=== PATIENT | male | born 1975 | race African-American/Black ===

== ENCOUNTER 2021-06-10 21:34 | Inpatient (IN) | payer OTHER ==
[~2021-06-10] VITALS: Ht 193 cm; Wt 103.2 kg
--- NOTE | 2021-06-10 21:35 | NUR ---
PT BIBSELF HOME C/O CP X 1 DAY FELT WORST TODAY, RAD TO LEFT NECK. NO TRAUMA NOTED. PT A/OX4. TOLERATING R/A WELL WITH SOB. CONNECTED PT TO POX AND MONITOR.
--- NOTE | 2021-06-10 22:01 | NUR ---
INITIATED RIGHT AC 20G. BLOOD COLLECTED AND GIVEN TO BOWLING ALLEY ATTENDANT
--- NOTE | 2021-06-10 22:13 | NUR ---
DRAFTING LAYOUT WORKER AT PT'S BEDSIDE
[2021-06-10 22:24] LABS: BASOPHILS % (AUTO) 0.6 % (0.0-2.0); EOSINOPHILS % (AUTO) 2.1 % (0.0-6.0); HEMATOCRIT 37 % (39-51); HEMOGLOBIN 12.3 g/dL (13.5-17.5); LYMPHOCYTES # (AUTO) 1.6 K/uL (0.8-4.8); LYMPHOCYTES % (AUTO) 22.9 % (20.0-44.0); MEAN CORPUSCULAR HGB CONC 33 g/dl (31.0-36.0); MEAN CORPUSCULAR VOLUME 78 fL (80-96); MONOCYTES # (AUTO) 0.7 K/uL (0.1-1.30); MONOCYTES % (AUTO) 10.4 % (2.0-12.0); NEUTROPHILS # (AUTO) 4.5 K/uL (1.8-8.9); PLATELET COUNT (AUTO) 193 K/uL (150-450); RED BLOOD CELL COUNT(AUTO) 4.76 MIL/uL (4.5-6.0)
--- NOTE | 2021-06-10 22:25 | NUR ---
STEVEN CARLTON AT PT'S BEDSIDE
[2021-06-10] MEDS ORDERED: NITROGLYCERIN 0.4 MG/TAB BOTTLE SL ONE (22:30)
[2021-06-10] MEDS ORDERED: ASPIRIN 325 MG TABLET PO ONE (22:30)
[2021-06-10 22:32] LABS: CALCIUM, SERUM 9.4 mg/dL (8.5-10.1); CREATININE 1.2 mg/dL (0.6-1.3); POTASSIUM 3.3 mmol/L (3.5-5.1)
[2021-06-10] MEDS ORDERED: ONDANSETRON HCL/PF 4 MG/2 ML VIAL IVP PRN (23:00)
[2021-06-10] MEDS ORDERED: ACETAMINOPHEN 325 MG TABLET PO PRN (23:00)
[2021-06-10] MEDS ORDERED: LABETALOL 20 MG/4 ML VIAL IV PRN (23:00)
[2021-06-10] MEDS ORDERED: ENOXAPARIN SODIUM 40 MG/0.4 ML DISP.SYRIN SQ SCH (23:00)
[2021-06-10] MEDS ORDERED: MORPHINE SULFATE INJ 2 MG/ML DISP.SYRIN IV PRN (23:00)
[2021-06-10] MEDS ORDERED: ASPIRIN 325 MG TABLET ONE (23:06)
[2021-06-10] MEDS ORDERED: NITROGLYCERIN 0.4 MG/TAB BOTTLE ONE (23:06)
--- NOTE | 2021-06-10 23:20 | NUR ---
CHEST PAIN RELIEVED WITH 325MG ASPIRIN, AND ONE 0.4MG NITROGLYCETIN TABLET. PT EXPRESSES NO CHEST PAIN. WILL CONTINUE TO MONITOR.
[2021-06-10] MEDS: TICAGRELOR 90 MG TABLET PO SCH (23:30)
[2021-06-11] MEDS ORDERED: ENOXAPARIN SODIUM 40 MG/0.4 ML DISP.SYRIN SQ ONE (04:27)
[2021-06-11] MEDS ORDERED: POTASSIUM CHLORIDE 20 MEQ TAB.PRT.SR PO ONE (04:28)
[2021-06-11] MEDS: POTASSIUM CHLORIDE 20 MEQ TAB.PRT.SR PO SCH ×2 (04:38→09:28)
--- NOTE | 2021-06-11 04:39 | NUR ---
PT AMBULATORY WITH STEADY GAIT TO THE RESTROOM. ADLS DONE. PT DENIES PAIN OR DISCOMFORT AT THIS TIME. ALL NEEDS MET. SAFETY MEASURES IN PLACE. RAC #20G S/L; PATENT AND INTACT.
[2021-06-11 04:57] LABS: BASOPHILS % (AUTO) 0.5 % (0.0-2.0); EOSINOPHILS % (AUTO) 2.2 % (0.0-6.0); HEMATOCRIT 38 % (39-51); HEMOGLOBIN 12.5 g/dL (13.5-17.5); LYMPHOCYTES # (AUTO) 1.8 K/uL (0.8-4.8); LYMPHOCYTES % (AUTO) 29.9 % (20.0-44.0); MEAN CORPUSCULAR HGB CONC 33 g/dl (31.0-36.0); MEAN CORPUSCULAR VOLUME 77 fL (80-96); MONOCYTES # (AUTO) 0.7 K/uL (0.1-1.30); MONOCYTES % (AUTO) 11.3 % (2.0-12.0); NEUTROPHILS # (AUTO) 3.5 K/uL (1.8-8.9); NEUTROPHILS % (AUTO) 56.1 % (43.0-81.0); PLATELET COUNT (AUTO) 189 K/uL (150-450); RED BLOOD CELL COUNT(AUTO) 4.85 MIL/uL (4.5-6.0); WHITE BLOOD COUNT (AUTO) 6.2 K/uL (4.3-11.0)
[2021-06-11 05:27] LABS: ALBUMIN 3.5 g/dL (3.4-5.0); BILIRUBIN,TOTAL 0.6 mg/dL (0.2-1.0); CALCIUM, SERUM 9.2 mg/dL (8.5-10.1); CREATININE 1.1 mg/dL (0.6-1.3); MAGNESIUM 2.1 mg/dL (1.8-2.4); PHOSPHORUS 4.1 mg/dL (2.5-4.9); POTASSIUM 3.8 mmol/L (3.5-5.1); TOTAL PROTEIN, SERUM 7.4 g/dL (6.4-8.2)
[2021-06-11] MEDS ORDERED: ENOXAPARIN SODIUM 40 MG/0.4 ML DISP.SYRIN SQ SCH (06:53)
--- NOTE | 2021-06-11 07:23 | NUR ---
ASSESSED PT ON BED ASLEEP, EASILY AROUSABLE, NOT IN RESPIRATORY DISTRESS, V/S STABLE, KEPT RESTED AND COMFORTABLE. WILL CONTINUE TO MONITOR.
[2021-06-11] MEDS ORDERED: PANTOPRAZOLE 40 MG TABLET.DR PO ONE (07:25)
[2021-06-11] MEDS: PANTOPRAZOLE 40 MG TABLET.DR PO SCH (07:27)
[2021-06-11] MEDS ORDERED: AMLO-213 PO (07:38)
[2021-06-11] MEDS ORDERED: TICA90TA PO (07:40)
[2021-06-11] MEDS ORDERED: ASPI-1169 PO (07:40)
[2021-06-11 08:00] VITALS: BP 123/78
--- NOTE | 2021-06-11 08:00 | NUR ---
RAY COREAS FROM ER CALLED AT [phone] AND GAVE REPORT.
--- NOTE | 2021-06-11 08:01 | NUR ---
REPORT GIVEN TO RAY BARBER FOR BENJAMIN.
--- NOTE | 2021-06-11 08:18 | NUR ---
[facility]SA SWAB COLLECTED AND SENT TO LAB
--- NOTE | 2021-06-11 08:20 | NUR ---
CONSUMER EDUCATOR OPENING NOTE RECEIVED PATIENT VIA GURNEY AROUND 0820 AM. PATIENT ALERT AND ORIENTED TIMES 4. NO PAIN NOTED. NO RESPIRATORY DISTRESS NOTED. BREATHS EVEN AND UNLABORED ON ROOM AIR. ON TELE MONITOR SR. IV ACCESS ON THE RAC #20 INTACT AND PATENT. OVERALL SKIN INTACT. NO CHEST PAIN NO DISCOMFORT NOTED. BED IN THE LOWEST AND LOCKED POSITION. SIDE RAILS UP TIMES 2. TABLE AND CALL LIGHT WITHIN REACH. WILL CONTINUE TO MONITOR.
[2021-06-11] MEDS ORDERED: ASPIRIN EC 325 MG TABLET.DR PO SCH (09:00)
[2021-06-11] MEDS: HYDROCHLOROTHIAZIDE 25 MG TABLET PO SCH (09:28)
[2021-06-11] MEDS: TICAGRELOR 90 MG TABLET PO SCH ×2 (10:44→16:17)
[2021-06-11 12:00] VITALS: BP 114/67
[2021-06-11 16:00] VITALS: BP 108/70
[2021-06-11] MEDS ORDERED: TICAGRELOR 90 MG TABLET PO SCH (17:00)
--- NOTE | 2021-06-11 19:19 | NUR ---
EDGER OPERATOR CLOSING NOTE PATIENT LYING ON HIS BED.ALERT AND ORIENTED TIMES 4. NO CHEST PAIN NOTED. NO RESPIRATORY DISTRESS NOTED. BREATHS EVEN AND UNLABORED ON ROOM AIR. ON TELE MONITOR WITH SR. IV ACCESS ON THE RAC #20 INTACT AND PATENT. ALL DUE MEDS GIVEN ORDERED. OVERALL SKIN INTACT. NO CHEST PAIN NO DISCOMFORT NOTED. BED IN THE LOWEST AND LOCKED POSITION. SIDE RAILS UP TIMES 2. TABLE AND CALL LIGHT WITHIN REACH. WILL ENDORSE FOR BENJAMIN.
[2021-06-11 20:00] VITALS: BP 111/75
[2021-06-11] MEDS ORDERED: ATORVASTATIN 40 MG TABLET PO SCH (22:00)
[2021-06-12] VITALS: BP 103/68
[2021-06-12 00:19] VITALS: BP 103/68
[2021-06-12 04:00] VITALS: BP 100/75
[2021-06-12 04:47] VITALS: BP 100/75
[2021-06-12 07:06] LABS: CHOLESTEROL 114 mg/dL (<200); HDL CHOLESTEROL 45 mg/dL (40-60); LDL 58 mg/dL (0-99); TRIGLYCERIDES 72 mg/dL (30-150)
--- NOTE | 2021-06-12 07:30 | NUR ---
MS RN CLOSING NOTE PATIENT LYING ON HIS BED.ALERT AND ORIENTED TIMES 4. NO CHEST PAIN NOTED. NO RESPIRATORY DISTRESS NOTED. BREATHS EVEN AND UNLABORED ON ROOM AIR. ON TELE MONITOR WITH SR. IV ACCESS ON THE RAC #20 INTACT AND PATENT. OVERALL SKIN INTACT. NO CHEST PAIN NO DISCOMFORT NOTED. BED IN THE LOWEST AND LOCKED POSITION. SIDE RAILS UP TIMES 2. TABLE AND CALL LIGHT WITHIN REACH. WILL CONTINUE TO MONITOR.
[2021-06-12] MEDS: PANTOPRAZOLE 40 MG TABLET.DR PO SCH (07:36)
[2021-06-12 08:00] VITALS: BP 120/49
[2021-06-12] MEDS: TICAGRELOR 90 MG TABLET PO SCH (08:32)
[2021-06-12] MEDS: HYDROCHLOROTHIAZIDE 25 MG TABLET PO SCH (08:34)
[2021-06-12] MEDS: POTASSIUM CHLORIDE 20 MEQ TAB.PRT.SR PO SCH (08:35)
[2021-06-12] MEDS ORDERED: ASPIRIN 81 MG TAB.CHEW PO SCH (09:00)
[2021-06-12] MEDS ORDERED: POTA20TA83 PO (11:47)
[2021-06-12] MEDS ORDERED: TICA90TA PO (11:47)
[2021-06-12] MEDS ORDERED: ATOR40TA PO (11:47)
[2021-06-12] MEDS ORDERED: DOCU-141 PO (11:47)
[2021-06-12] MEDS ORDERED: HYDR25TA4 PO (11:47)
[2021-06-12 12:00] VITALS: BP 115/57
--- NOTE | 2021-06-12 12:45 | NUR ---
DESIGN TECHNOLOGY TEACHERRESISTOR TESTER NOTES DISCHARGE PATIENT IN STABLE CONDITION. VITAL SIGNS WITHIN NORMAL RANGES. PATIENT THE SOLDER DEPOSIT OPERATOR OF THE INSTRUCTIONS VERBALIZED UNDERSTANDING .IV ACCESS REMOVED COVERED WITH GAUZE . NO BLEEDING NOTED. BELONGINGS ACCOUNTED AND SIGNED FOR.ARM BAND REMOVED. ELIZABETH WHEELED THE PATIENT TO THE LOBBY. MEDICATION GOT FROM THE PHARMACY, TICKET VALIDATED BY SECURITY. REMIND THE PATIENT IN CASE OF EMERGENCY GO TO ER OR CALL 911. PATIENT LEFT UNIT AT 1245 PM IN STABLE CONDITION .MD AND CHARGE NURSE AWARE OF THE DISCHARGE.
== END 2021-06-12 12:45 | disposition home or self-care (01) | DRG 198 ==
LOC: ER 21:38 → TRANSITION 06-11 01:31 → TELE 06-11 07:46
PROVIDERS: ADMIT Internal Medicine; ATTEND Nurse Practitioner Acute Care
DX: R07.89 Other chest pain (principal); I25.10 Atherosclerotic heart disease of native coronary artery without angina pectoris; E78.5 Hyperlipidemia, unspecified; E87.6 Hypokalemia; I10 Essential (primary) hypertension; Z95.5 Presence of coronary angioplasty implant and graft; I25.2 Old myocardial infarction; I25.5 Ischemic cardiomyopathy; Z79.82 Long term (current) use of aspirin; Z79.899 Other long term (current) drug therapy
CPT/HCPCS: 36415; 71045-TC; 80048-TC; 80053-TC; 80061-TC; 83735-TC; 84100-TC; 84484-TC; 85025-TC; 87081-TC; 93307-TC; C9803; G0378; J1650; J2270; J2405